=== PATIENT | female | born 1955 | race Caucasian/White ===

== ENCOUNTER 2019-01-21 08:57 | Day surgery (SDC) | payer OTHER ==
[~2019-01-21] VITALS: Ht 147.3 cm; Wt 69.4 kg
[2019-01-21] VITALS (13 sets, daily range): BP systolic 98–146; BP diastolic 45–68; PULSE 71–82; RESP 12–28; Ht 147.3 cm; Wt 69.4 kg
[~2019-01-21 08:57] MED LIST: LACTATED RINGER'S 1,000 ML (ENTER RATE) IV SCH
[2019-01-21] MEDS ORDERED: LISI-471 PO (09:33)
[2019-01-21] MEDS ORDERED: ASPI81TA52 PO (09:33)
--- NOTE | 2019-01-21 10:36 | PREAC ---
Date/Time of Note Date/Time of Note DATE: 01/21/19 TIME: 10:35 Anesthesia Eval and Record Evaluation Time Pre-Procedure Interview DATE: 01/21/19 TIME: 10:35 Age 63 Sex female NPO: 8 hrs Preoperative diagnosis abnormal uterine bleeding Planned procedure hysteroscopy, d&c Past Medical History Past Medical History: Includes Cardio: HTN GI: GERD, Obesity Surgery & Anesthesia Issues No known issue Meds Anticoagulation: No Beta Jason within 24 hr: No Reason Beta Jason not given: Pt. not on B-Jason Reported Medications Lisinopril* (Lisinopril*) 20 Mg Tablet, 20 MG PO DAILY, #30 TAB 01/21/19 Aspirin (Low Dose Aspirin) 81 Mg Tablet.dr, 81 MG PO DAILY, #30 TAB 01/21/19 Current Medications Lactated Ringer's 1,000 ml @ 25 mls/hr Q24H IV Last administered on 01/21/19at 09:43; Admin Dose 25 MLS/HR; Start 01/21/19 at 07:00 Meds reviewed: Yes Allergies Coded Allergies: No Known Allergy (Unverified , 01/21/19) Allergies Reviewed: Yes Labs/Studies Labs Reviewed: Reviewed by anesthesiologist Blood Bank Test 01/21/19 09:31 Blood Type O POSITIVE test: Negative Studies: ECG Pre-procedure Exam Last vitals Vital Signs Date Temp Pulse Resp B/P (MAP) Pulse Ox O2 O2 Flow FiO2 Time Delivery Rate 01/21/19 97.9 71 16 146/68 97 Room Air 09:52 (94) Airway: Adequate mouth opening, Adequate thyromental dist Mallampati: Mallampati II Teeth: Abnormal Lung: Normal Heart: Normal ASA Physical Status ASA physical status: 2 Emergency: None Planned Anesthetic General/MAC: ETT Pre-operative Attestations Prior to commencing anesthesia and surgery, the patient was re-evaluated, there was verification of: *The patient's identity *The results of appropriate recent lab work and preoperative vital signs *The above evaluation not changing prior to induction *Anesthetic plan, risk benefits, alternative and complications discussed with patient/family; questions answered; patient/family understands, accepts and wishes to proceed. MATIAS CASTANON Jan 21, 2019 10:36
[2019-01-21] MEDS ORDERED: ALBUTEROL 0.083% (NEB) 2.5 MG/3 ML AMP HHN PRN (11:00)
[2019-01-21] MEDS ORDERED: METOCLOPRAMIDE 10 MG INJ IV PRN (11:00)
[2019-01-21] MEDS ORDERED: HYDROmorphONE 1 MG/5 ML IV SYRINGE IV PRN (11:00)
[2019-01-21] MEDS ORDERED: DIPHENHYDRAMINE 50 MG INJ IV PRN (11:00)
[2019-01-21] MEDS ORDERED: MEPERIDINE 25 MG INJ IV PRN (11:00)
[2019-01-21] MEDS ORDERED: FENTAnyl 50 MCG/ML VIAL IV PRN ×2 (11:00)
[2019-01-21] MEDS ORDERED: ONDANSETRON 4 MG INJ IV PRN (11:00)
[2019-01-21] MEDS ORDERED: DESFLURANE 15 MIN ONE (11:00)
[2019-01-21] MEDS ORDERED: GLYCOPYRROLATE 0.4 MG INJ ONE (11:00)
[2019-01-21] MEDS ORDERED: FENTAnyl 50 MCG/ML VIAL ONE (11:06)
[2019-01-21] MEDS ORDERED: SUCCINYLCHOLINE CHLORIDE 100 MG/5 ML SYG IV ONE ×3 (11:07→11:23)
[2019-01-21] MEDS ORDERED: PROPOFOL 20 ML ONE (11:23)
[2019-01-21] MEDS ORDERED: ROCURONIUM 50 MG INJ ONE (11:23)
[2019-01-21] MEDS ORDERED: SUGAMMADEX SODIUM 200 MG/2 ML VIAL IV ONE (11:23)
[2019-01-21] MEDS ORDERED: SILVER NITRATE SWAB ONE (11:49)
--- NOTE | 2019-01-21 12:03 | SIPON ---
Date/Time of Note Date/Time of Note DATE: 01/21/19 TIME: 12:01 Operative Report Preoperative Diagnosis Endometrial polyp Postoperative Diagnosis Same Operation/Procedure Performed Hysteroscopy, endometrial polupectomy Surgeon Farrukh Westbrook MD printer assistant None Anesthesia: general Estimated blood loss: 10 - 50 ml's Transfusion Required none Specimen ECC and endometrial polyp Grafts/Implants none Complications none FARRUKH WESTBROOK MD Jan 21, 2019 12:03
[2019-01-21] MEDS: HYDROmorphONE 1 MG/5 ML IV SYRINGE IV PRN ×2 (12:11→12:20)
--- NOTE | 2019-01-21 12:14 | PREOPHP ---
DATE OF ADMISSION: 01/21/2019 HISTORY OF PRESENT ILLNESS: A 63-year-old female 4, para 3, AB 1, last menstrual period at a ge 43, is admitted with history of endometrial polyp. PAST MEDICAL HISTORY: Hypertension and GERD. PAST SURGICAL HISTORY: section x3. ALLERGIES: NO KNOWN ALLERGIES. FAMILY HISTORY: Diabetes, colon cancer, breast cancer, uterine cancer. PHYSICAL EXAMINATION: VITAL SIGNS: Patient is afebrile. Vital signs stable. HEAD, NECK AND CHEST: Within normal limits. ABDOMEN: Soft, nontender, nondistended. PELVIC: Normal. EXTREMITIES: Within normal limits. NEUROLOGIC: Within normal limits. IMPRESSION: Endometrial polyp. PLAN: Hysteroscopy, possible endometrial polypectomy. Risks, benefits and alternatives of the proce dure were explained to patient. Patient said she understood and gave informed consent for the proced ure. Dictated By: FARRUKH BARBOSA/LANA Conf#: [id number] DID#: [id number]
--- NOTE | 2019-01-21 12:45 | OPR ---
DATE OF OPERATION: 01/21/2019 PREOPERATIVE DIAGNOSIS: Endometrial polyp. POSTOPERATIVE DIAGNOSIS: Endometrial polyp. OPERATION PERFORMED: Hysteroscopy, endometrial polypectomy. SURGEON: Farrukh Bajwa MD ANESTHESIA: General. ANESTHESIOLOGIST: Dr. Slater. DESCRIPTION OF PROCEDURE: The patient was taken to operating room, placed on the operating table in supine position. After adequate general anesthesia was given, the patient was placed in dorsal litho raoul position. The area was prepared and draped in usual sterile fashion. Speculum was placed insid e the vagina and a tenaculum was used to grasp the anterior lip of the cervix using Kevorkian curet, endocervical curettage was performed and specimen obtained was sent to pathology. Next, the cervical os was dilated. A 5 mm hysteroscope was placed inside the uterine cavity and the uterine cavity was explored. There were an endometrial polyp noted in the posterior aspect of the endometrial cavity. Using resectoscope, the endometrial polyp was resected and all the instruments were removed. [place] te hemostasis was assured. Patient tolerated the procedure well. The patient was awakened from anes thesia and transferred to recovery in stable condition. ESTIMATED BLOOD LOSS: 10 mL. COUNTS: All counts were correct. Dictated By: FARRUKH BARBOSA/NTS Conf#: [id number] DID#: [id number]
--- NOTE | 2019-01-21 14:01 | PAC ---
Date/Time of Note Date/Time of Note DATE: 01/21/19 TIME: 14:01 Post-Anesthesia Notes Post-Anesthesia Note Last documented vital signs Vital Signs Date Temp Pulse Resp B/P (MAP) Pulse Ox O2 O2 Flow FiO2 Time Delivery Rate 01/21/19 97.8 82 18 132/58 95 Room Air 12:59 (82) 01/21/19 2.0 12:20 Activity: WNL Respiratory function: WNL Cardiovascular function: WNL Mental status: Baseline Pain reasonably controlled: Yes Hydration appropriate: Yes Nausea/Vomiting absent: Yes MATIAS CASTANON Jan 21, 2019 14:01
== END 2019-01-21 13:30 | disposition home or self-care (01) ==
LOC: SDS 08:57
PROVIDERS: ATTEND Obstetrics & Gynecology
DX: N84.0 Polyp of corpus uteri (principal); I10 Essential (primary) hypertension
CPT/HCPCS: 58563; 86850; 86900; 86901; 88305; J1170; J3010; Z7512; Z7610; J2405